=== PATIENT | male | born 1990 | race Hispanic/Latino ===

== ENCOUNTER 2020-02-15 09:39 | Outpatient (CLI) | payer BC ==
--- NOTE | 2020-02-15 10:11 | XRay Report ---
CHEST 2 VIEWS INDICATION / CLINICAL INFORMATION: PRE -OP CHEST X RAY [id number]. COMPARISON: 08/13/2017 FINDINGS: SUPPORT DEVICES: None. HEART / MEDIASTINUM: No significant abnormality. LUNGS / PLEURA: No significant pulmonary or pleural abnormality. No pneumothorax. ADDITIONAL FINDINGS: No significant additional findings. IMPRESSION: 1. No acute findings. Signer Name: Don Tobias MD Signed: 02/15/2020 10:07 AM Workstation Name: [id number]
== END 2020-02-15 09:40 | disposition home or self-care (01) ==
LOC: SPVIMAG 09:39
PROVIDERS: ATTEND Internal Medicine
DX: Z01.818 Encounter for other preprocedural examination (principal)
CPT/HCPCS: 71046